=== PATIENT | male | born 1990 | race Caucasian/White ===

== ENCOUNTER → 2019-03-09 08:43 | Outpatient (CLI) | payer OTHER, SELFPAY ==
--- NOTE | 2019-03-09 | DI.MRI.S_ITS ---
PROCEDURE: MR HEAD/BRAIN WO/W CON INDICATIONS: DIZZINESS/OTALGIA TECHNIQUE: Noncontrast sagittal T1 spin echo, axial T2 fast spin echo, axial FLAIR, axial gradient echo, axial diffusion and ADC through the brain. Axial/sagittal/coronal 3-D CISS, thin-slice axial T1 spin echo with fat saturation through the skull base. After the administration of contrast, axial and coronal thin-slice T1 spin echo with fat saturation through the skull base, axial T1 spin echo with fat saturation through the brain. COMPARISON: None. FINDINGS: Image quality: Excellent. Cranial nerves: In this patient with the given history, scrutiny is given to the cranial nerves, including along the internal auditory canals. No masses or abnormal enhancement can be seen. The trigeminal nerves and the Meckel's caves are likewise unremarkable. CSF spaces: Ventricles are normal in size and shape. No extra-axial fluid collections. Basal cisterns are patent. Brain: No intracranial bleeds or mass effects. No abnormal intracranial enhancement. Diffusion weighted images show no acute ischemic insults. Castaneda-white matter interface is intact. Brainstem is normal. Normal intravascular flow voids are present. Skull and face: Calvarial marrow signal is normal. Orbits appear normal. Numerous hypointense stop lesions are seen. Please correlate with patient history and physical examination findings. Sinuses: Sinuses and mastoids appear clear. IMPRESSION: No imaging explanation is found for this patient's presenting symptoms. Dictated by: Perico Jenkins M.D. on 03/09/2019 at 10:15 Approved by: Perico Jenkins M.D. on 03/09/2019 at 10:17
== END ==
PROVIDERS: PCP Preventive Medicine Public Health & General Preventive Medicine; Visit Provider Internal Medicine Rheumatology
DX: R42 Dizziness and giddiness (principal); H92.09 Otalgia, unspecified ear
CPT/HCPCS: 70553

== ENCOUNTER → 2019-05-08 06:27 | Outpatient (CLI) | payer OTHER, SELFPAY ==
--- NOTE | 2019-05-08 | DI.ECHO.S_ITS ---
[facility]---------+ [facility] +---------+ : : [address] : : : : [id number] : : : : Phone: [phone]+ Echocardiogram Report + + :Name: GORDO POSEY Study Date: 05/08/2019 Height: 66 in : :[facility] Weight: 175 lb : : Gender: Male BSA: 1.9 m2 : :: 1990 Age: 28 yrs BP: 112/70 mmHg: :Reason For Study: QTC : : Performed By: Jena King : :Referring: JEAN-CLAUDE SÁNCHEZ : + + Interpretation Summary The left ventricle is normal in size, wall thickness, and systolic function without any focal wall motion abnormalities with the ejection fraction estimated to be 55-60%. Diastolic parameters suggest probable normal left ventricular diastolic function and normal filling pressures. The right ventricle grossly appears normal in size with probable normal systolic function. The right ventricular systolic pressure is estimated to be at least 20 mmHg based on an estimated right atrial pressure of 3 mm Hg. Both atria are normal in size. There is no significant valvular heart disease. The patient was in sinus bradycardia with heart rates between 47-53 bpm during the exam. Procedure: A two-dimensional transthoracic echocardiogram with color flow and Doppler was performed. The study quality was technically good. There is no prior echocardiogram noted for this patient. The patient was in sinus bradycardia with heart rates between 47-53 bpm during the exam. Left Ventricle: The left ventricle is normal in size, wall thickness, and systolic function without any focal wall motion abnormalities. The ejection fraction is estimated to be 55-60%. Diastolic parameters suggest probable normal left ventricular diastolic function and normal filling pressures. Right Ventricle: The right ventricle grossly appears normal in size with probable normal systolic function. Atria: Both atria are normal in size. The interatrial septum is intact with no evidence for an atrial septal defect. Mitral Valve: There is mild mitral annular calcification. The mitral valve leaflets appear borderline thickened, but open well. There is trace mitral regurgitation. Aortic Valve: The aortic valve is trileaflet. The aortic valve opens well. No aortic regurgitation is present. Tricuspid Valve: The tricuspid valve is normal in structure and function. There is a trace or physiologic amount of tricuspid regurgitation. The right ventricular systolic pressure is estimated to be at least 20 mmHg based on an estimated right atrial pressure of 3 mm Hg. Pulmonic Valve: The pulmonic valve is normal in structure and function. There is no pulmonic valvular regurgitation. There is no significant valvular heart disease. Great Vessels: The aortic root is normal size. The dimensions of the ascending aorta are normal. The aortic arch is normal in size. The IVC is of normal diameter and collapses greater than 50% with a sniff. This suggests a low right atrial pressure of 3 mm Hg. Pericardium/ Pleura There is no pericardial effusion. There is no pleural effusion. MMode/2D Measurements & Calculations LVIDd: 5.4 cm Ao root diam: 3.1 cm LVIDs: 3.7 cm Aortic Jxn: 2.3 cm FS: 30.3 % asc Aorta Diam: 3.0 cm EPSS: 0.89 cm Ao Arch Diam (Prox Trans): 2.6 cm IVSd: 1.0 cm LVPWd: 0.88 cm LV gamez. diameter/BSA (cm/m^2): 2.8 LV sys. diameter/BSA (cm/m^2): 2.0 LA dimension: 3.6 cm RA long axis: 4.4 cm LA A2 area: 18.1 cm2 RA area: 14.4 cm2 LA A4 area: 16.5 cm2 RA vol: 40.7 ml LA length (vol): 4.7 cm RA : 21.5 ml/m2 LA vol: 53.8 ml IVC diam: 1.8 cm LA vol index: 28.4 ml/m2 RVDd major: 5.6 cm RVD1 (basal): 3.6 cm RVD2 (mid): 3.0 cm Doppler Measurements & Calculations Ao V2 max: 130.2 cm/sec MV E max nixon: 97.8 cm/sec Ao V2 mean: 85.4 cm/sec MV A max nixon: 52.0 cm/sec Ao max P.8 mmHg MV E/A: 1.9 Ao mean P.4 mmHg Med Peak E' Nixon: 10.2 cm/sec Ao V2 VTI: 29.8 cm E/E' med: 9.6 Lat Peak E' Nixon: 13.7 cm/sec E/E' lat: 7.1 E/e' average: 8.4 MV dec time: 0.17 sec MV P1/2t: 52.7 msec TR max nixon: 204.6 cm/sec MV P1/2t max nixon: 97.4 cm/sec TR max P.7 mmHg MVA(P1/2t): 4.2 cm2 PA V2 max: 99.7 cm/sec PA V2 mean: 59.9 cm/sec PA mean P.8 mmHg PA Accel Time: 0.16 sec Reading Physician:DIANE
== END ==
PROVIDERS: PCP Preventive Medicine Public Health & General Preventive Medicine; Visit Provider Physician Assistant
DX: I45.81 Long QT syndrome (principal); R00.2 Palpitations; R00.1 Bradycardia, unspecified
CPT/HCPCS: 93306

== ENCOUNTER 2019-09-29 20:10 | Emergency (ER) | payer OTHER, SELFPAY ==
[2019-09-29 20:16] VITALS: BP 137/83; PULSE 68; RESP 14; O2SAT 100
--- NOTE | 2019-09-29 20:18 | DI.RAD.S_ITS ---
PROCEDURE: XR CHEST 1V INDICATIONS: chest pain TECHNIQUE: One view of the chest was acquired. COMPARISON: None. FINDINGS: Surgical changes and devices: None. Lungs and pleura: Lungs are clear. No pleural effusions or pneumothorax. Mediastinum: Mediastinal contours appear normal. Heart size is normal. Bones and chest wall: No suspicious bony lesions. Overlying soft tissues appear unremarkable. IMPRESSION: Normal for age, source of current chest pain symptoms is not seen. Dictated by: Imer Hartmann M.D. on 09/29/2019 at 20:50 Approved by: Imer Hartmann M.D. on 09/29/2019 at 20:50
[2019-09-29 20:48] LABS: Add Manual Diff / Slide Review NO; Basophils Absolute Auto 100 /uL (0-100); Eosinophils Absolute Auto 200 /uL (0-450); Eosinophils Percent Auto 2.2 % (2-4); Hematocrit 42.4 % (41-53); Lymphocytes Absolute Auto 1900 /uL (1100-4500); Lymphocytes Percent Auto 27.2 % (25-40); Mean Corpuscular HGB Conc 35.3 % (30-36); Mean Corpuscular Volume 87.7 fL (80-100); Monocytes Absolute Auto 600 /uL (0-900); Monocytes Percent Auto 9.1 % (3-14); Neutrophils Absolute Auto 4200 /uL (1500-7000); Neutrophils Percent Auto 60.5 % (50-75); Platelet Count 230 X10^3/uL (150-400); Red Blood Cell Count 4.84 X10^6/uL (4.5-5.9)
--- NOTE | 2019-09-29 20:53 | ED.CHESTPAIN ---
HPI - Chest Pain General Chief Complaint: Chest Pain Stated Complaint: back and chest pain Time Seen by Provider: 09/29/19 20:53 Source: patient Mode of arrival: Ambulatory Limitations: no limitations History of Present Illness HPI narrative: This is a 29-year-old male comes in with complaint of left shoulder blade pain that is worse when he is using his arm and radiates to the left pectoral area. Patient states that Saturday he felt a knot in that area it has slowly been worsening. He has increased pain with deep inspiration. He denies any recent physical activity that he thinks may have contributed to his symptoms. He has not had any skin changes no rash. He states if he is not using it the pain decreases to a 4/5 but that it is always present and has been constant since Saturday. I had his increased since then so he came in for about. He denies shortness of breath, he denies fevers, no nausea or vomiting. Had 1 episode of diarrhea today, no urinary changes. No swelling in his arms or lower extremities. He did note some left tingling in his fingers denies any neck pain. He has not had similar symptoms in the past. Took a single dose of Motrin this morning with minimal improvement. States he has history of PTSD and migraines. States that he was told he had some irregular beats but that they ?went away?. No prior surgical history. No tobacco, occasional alcohol with no illicit. Family history includes dad has hypertension has a paternal grandmother with stroke and paternal grandfather with cancer. No PEs, lung disease otherwise he is aware of her other cardiac history. Related Data Home Medications Medication Instructions Recorded Confirmed cetirizine 10 mg tablet 10 mg PO DAILY 06/23/19 06/23/19 clonidine HCl 0.3 mg tablet 0.3 mg PO BEDTIME 06/23/19 06/23/19 dextroamphetamine-amphetamine 20 20 mg PO BID 06/23/19 06/23/19 mg tablet sertraline 100 mg tablet 200 mg PO DAILY tab 06/23/19 06/23/19 triamterene-hydrochlorothiazid PO DAILY 06/23/19 06/23/19 Previous Rx's Medication Instructions Recorded rizatriptan 10 mg tablet See Rx Instructions PO .COMPLEX 06/23/19 #10 tab verapamil 40 mg tablet 40 mg PO TID #90 tab 06/23/19 verapamil 180 mg 24 hr 180 mg PO DAILY #60 cap 09/01/19 capsule,extended release zolmitriptan 5 mg tablet See Rx Instructions PO .COMPLEX 09/01/19 #10 tab Allergies Allergy/AdvReac Type Severity Reaction Status Date / Time cefprozil [From Cefzil] Allergy rash Verified 09/01/19 14:19 Review of Systems Review of Systems ROS Unobtainable: All systems reviewed & are unremarkable except as noted in HPI and below Patient History Surgical History History of wisdom tooth extraction (Acute) Family History (Updated 09/29/19 @ 21:16 by Neena Mejia DO) Grandfather Cancer Grandfather Cancer Diabetes mellitus Hypertension Grandmother Cancer COPD (chronic obstructive pulmonary disease) Grandmother Dementia Joint problem Father Hypertension Social History (Updated 09/29/19 @ 21:16 by Neena Mejia DO) marital status: Smoking Status: Former smoker alcohol intake: current substance use type: does not use Smoking Status: Former smoker Exam Narrative Exam Narrative: GENERAL: Alert and oriented x three, well-nourished, well-appearing male in mild distress. Patient is sitting in bed reading a book when I arrive to the room. HEENT: Head normocephalic, atraumatic, EOMI, pupils reactive, face symmetric, moist mucous membranes NECK: Supple, full range of motion CARDIOVASCULAR: Regular rate and rhythm without murmurs, rubs or gallops. RESPIRATORY: Breath sounds equal bilaterally, no wheezes rales or rhonchi. ABDOMEN: Soft, nontender. Normoactive bowel sounds all 4 quadrants. No guarding or rebound, rigidity, no mass : No CVA tenderness BACK: No cervical, thoracic or lumbar vertebral point tenderness. Patient does have point tenderness with palpable knot on his left thoracic region medial to his scapula and patient complains of pain with palpation of this area. Patient does not have any ecchymosis or skin changes. He has full range of motion. Patient has normal range of motion. No sensation changes. Patient's gait is normal. EXTREMITIES: Normal range of motion, no clubbing or edema. 2+ pulses bilateral lower extremities. Neurovascularly intact NEUROLOGICAL: Cranial nerves II through XII grossly intact. Moving all extremities. SKIN: Warm, dry, no petechiae, no rashes or lesions. Initial Vital Signs Initial Vital Signs: Vital Signs Pulse Rate 68 09/29/19 20:16 Respiratory Rate 14 09/29/19 20:16 Blood Pressure 137/83 09/29/19 20:16 Pulse Oximetry 100 09/29/19 20:16 Scores HEART Score Heart Score history: Slightly Suspicious Heart Score EKG: Normal Heart Score Age: < 45 years old Heart Score risk factors: No known risk factors Heart Score troponin: < or = to normal limit Heart Score Total: 0 PERC Score Age greater than or equal to 50 years: No Heart rate greater than or equal to 100 bpm: No Room Air O2 Sat less than 95%: No Unilateral leg swelling: No Recent trauma or surgery: No Hemoptysis: No Prior PE or DVT: No Hormone Use: No Total PERC Score: 0 Course Orders Ordered: ED Orders 09/29/19 20:18 Chest [XR chest 1V] Stat EKG-12 Lead Stat 09/29/19 20:30 Complete Blood Count AUTO DIFF Stat Comprehensive Metabolic Panel Stat D Dimer Stat Lipase Stat Troponin I Stat 09/29/19 21:41 CT angio chest PE protocol Stat Discontinued Medications Sodium Chloride (Normal Saline 0.9%) 1,000 mls @ 1,000 mls/hr IV BOLUS ONE Stop: 09/29/19 22:41 Last Infusion: 09/29/19 22:49 Dose: 0 mls/hr Documented by: Admin: 09/29/19 22:02 Dose: 1,000 mls/hr Documented by: SALUD Vital Signs Vital signs: Vital Signs - 8 hr 09/29/19 20:16 09/29/19 22:02 09/29/19 22:30 Pulse Rate 70 70 Pulse Rate [Left] 68 Respiratory Rate 14 12 16 Blood Pressure [Left Arm] 137/83 138/86 128/75 Pulse Oximetry 100 98 96 MDM - Chest Pain Lab Data Attestation: I reviewed the patient's lab results. Result diagrams: 09/29/19 20:30 09/29/19 20:30 Labs: Lab Results 09/29/19 09/29/19 09/29/19 Range/Units 20:30 20:30 20:30 WBC 7.0 (4.5-11.0) X10^3/uL RBC 4.84 (4.5-5.9) X10^6/uL Hgb 15.0 (13.5-17.5) g/dL Hct 42.4 (41-53) % MCV 87.7 (80-100) fL MCH 31.0 (26-34) PG MCHC 35.3 (30-36) % RDW 13.0 (11.6-14.8) % Plt Count 230 (150-400) X10^3/uL Neut % (Auto) 60.5 (50-75) % Lymph % (Auto) 27.2 (25-40) % [place] % (Auto) 9.1 (3-14) % Eos % (Auto) 2.2 (2-4) % Baso % (Auto) 1.0 (0-2) % Neut # (Auto) 4200 (5364-4152) /uL Lymph # (Auto) 1900 (5518-2948) /uL [place] # (Auto) 600 (0-900) /uL Eos # (Auto) 200 (0-450) /uL Baso # (Auto) 100 (0-100) /uL D-Dimer (<230) ng/mL Sodium 140 (137-145) mmol/L Potassium 3.7 (3.4-5.1) mmol/L Chloride 101 (98-107) mmol/L Carbon Dioxide 31 (22-32) mmol/L BUN 24 H (9-20) mg/dL Creatinine 1.00 (0.66-1.25) mg/dL Estimated GFR > 60.0 (>60) mL/min BUN/Creatinine Ratio 24.0 H (6-22) Glucose 105 H (70-100) mg/dL Calcium 9.6 (8.4-10.2) mg/dL Total Bilirubin 0.3 (0.2-1.3) mg/dL AST 52 (17-59) IU/L ALT 76 H (<50) IU/L Alkaline Phosphatase 81 (38-126) U/L Troponin I < 0.012 (0.01-0.034) ng/mL Total Protein 7.0 (6.3-8.2) g/dL Albumin 4.2 (3.5-5.0) g/dL Globulin 2.8 (1.7-4.1) g/dL Albumin/Globulin Ratio 1.5 (1.0-2.8) Lipase 206 (23-300) U/L 09/29/19 Range/Units 20:30 WBC (4.5-11.0) X10^3/uL RBC (4.5-5.9) X10^6/uL Hgb (13.5-17.5) g/dL Hct (41-53) % MCV (80-100) fL MCH (26-34) PG MCHC (30-36) % RDW (11.6-14.8) % Plt Count (150-400) X10^3/uL Neut % (Auto) (50-75) % Lymph % (Auto) (25-40) % [place] % (Auto) (3-14) % Eos % (Auto) (2-4) % Baso % (Auto) (0-2) % Neut # (Auto) (4578-8793) /uL Lymph # (Auto) (3401-8527) /uL [place] # (Auto) (0-900) /uL Eos # (Auto) (0-450) /uL Baso # (Auto) (0-100) /uL D-Dimer 383 H (<230) ng/mL Sodium (137-145) mmol/L Potassium (3.4-5.1) mmol/L Chloride (98-107) mmol/L Carbon Dioxide (22-32) mmol/L BUN (9-20) mg/dL Creatinine (0.66-1.25) mg/dL Estimated GFR (>60) mL/min BUN/Creatinine Ratio (6-22) Glucose (70-100) mg/dL Calcium (8.4-10.2) mg/dL Total Bilirubin (0.2-1.3) mg/dL AST (17-59) IU/L ALT (<50) IU/L Alkaline Phosphatase (38-126) U/L Troponin I (0.01-0.034) ng/mL Total Protein (6.3-8.2) g/dL Albumin (3.5-5.0) g/dL Globulin (1.7-4.1) g/dL Albumin/Globulin Ratio (1.0-2.8) Lipase (23-300) U/L Imaging Data Chest x-ray: Radiologist's Impression: [address] [address] XRay Report Signed Patient: CHARLEEN POSEYTMR#: [id number] : 1990Acct:[id number] Age/Sex: 29 / MDate of Service: 09/29/19 Loc: ED Accession Number: [id number] Procedure: XR chest 1V Ordering Provider: Neena Mejia D.O. PROCEDURE: XR CHEST 1V INDICATIONS: chest pain TECHNIQUE: One view of the chest was acquired. COMPARISON: None. FINDINGS: Surgical changes and devices: None. Lungs and pleura: Lungs are clear. No pleural effusions or pneumothorax. Mediastinum: Mediastinal contours appear normal. Heart size is normal. Bones and chest wall: No suspicious bony lesions. Overlying soft tissues appear unremarkable. IMPRESSION: Normal for age, source of current chest pain symptoms is not seen. Dictated by: Imer Hartmann M.D. on 09/29/2019 at 20:50 Approved by: Imer Hartmann M.D. on 09/29/2019 at 20:50 CT scan - chest: Radiologist's Impression: No PE, normal heart size. Are feet LV ratio is normal thoracic aorta normal caliber great vessels are patent. Thyroid mediastinum are unremarkable with mild dependent atelectasis in both lungs with no consolidation or effusion and visualized upper abdomen is unremarkable with no acute fractures. ECG Data Attestation: I personally reviewed and interpreted this ECG as follows: Prior ECG tracings: not available for review Interpretation: Sinus rhythm rate of 68 P are 135 QRS of 111 and QTC of 418. No ST elevation was appreciated. No depression appreciated. No prior EKG available. [facility] Narrative Medical decision making narrative: Patient had echo in April of 2019 showed sinus bradycardia with rates between 47 and 53 EF was 55-60% with normal left ventricle and no wall motion abnormalities. Mild mitral annular calcification, mitral valve leaflets appear borderline thickened but open well with trace mitral regurg. Trace or physiologic amount of tricuspid regurg. No major changes on echo. Patient's labs, CBC is negative BUN is 24 with glucose of 105 an ALT of 76 otherwise normal renal function electrolytes and cardiac enzyme. Lipase and LFTs are otherwise normal than above. Patient's dimer was included although not as likely this is elevated in the 300 range and patient and I discussed doing CT to rule out PE and this is negative. Patient has point tenderness on physical exam that is suspicious for more of a musculoskeletal cause. Plan for NSAIDs rest, Tylenol in addition as needed and follow up with primary care. Discharge Plan Departure Patient Disposition: Home Clinical Impression: Acute left-sided thoracic back pain Discharge Date/Time: 09/29/19 22:49 Instructions: DI for Thoracic Back Pain Activity Restrictions/Additional Instructions: Follow up with your physician in the next week for recheck. I would recommend ibuprofen up to 800 mg every 8 hours as needed pain and or Tylenol up to a 1000 mg every 8 hours as needed for pain. You may use moist heat to the affected area several times daily. 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 pellets 24 hr 180 mg PO DAILY Qty: 60 RF: 2 zolmitriptan [Zomig] 5 mg tablet See Rx Instructions PO .COMPLEX Qty: 10 RF: 2 Referrals: Dago Irizarry [Primary Care Provider] -
[2019-09-29 20:55] LABS: Alanine Aminotransferase 76 IU/L (<50); Albumin 4.2 g/dL (3.5-5.0); Albumin Globulin Ratio 1.5 (1.0-2.8); Alkaline Phosphatase 81 U/L (38-126); Aspartate Aminotransferase 52 IU/L (17-59); Bilirubin Total 0.3 mg/dL (0.2-1.3); Blood Urea Nitrogen 24 mg/dL (9-20); Calcium 9.6 mg/dL (8.4-10.2); Carbon Dioxide 31 mmol/L (22-32); Chloride 101 mmol/L (98-107); Estimated Glomerular Filt Rate > 60.0 mL/min (>60); Globulin 2.8 g/dL (1.7-4.1); Glucose 105 mg/dL (70-100); HEMOLYSIS 17 (0-50); Potassium 3.7 mmol/L (3.4-5.1); Sodium 140 mmol/L (137-145)
[2019-09-29 21:07] LABS: Troponin I < 0.012 ng/mL (0.01-0.034)
[2019-09-29 21:10] LABS: Lipase 206 U/L (23-300)
[2019-09-29 21:30] LABS: D Dimer 383 ng/mL (<230)
--- NOTE | 2019-09-29 21:41 | DI.CT.S_ITS ---
PROCEDURE: CT ANGIO CHEST PE PROTOCOL INDICATIONS: left thoracic back/chest pain TECHNIQUE: After the administration of intravenous contrast, 2 mm thick sections acquired from the pulmonary apices to the posterior costophrenic angles. 3-dimensional maximum intensity projection (MIP) coronal and sagittal reformats were then acquired through the thorax. For radiation dose reduction, the following was used: automated exposure control, adjustment of mA and/or kV according to patient size. COMPARISON: [facility], CR, XR CHEST 1V, 09/29/2019, 20:21. FINDINGS: Image quality: Excellent. Pulmonary arteries: Pulmonary arteries are normal in size, and demonstrate no intraluminal filling defects to suggest central pulmonary embolism. Lungs and pleura: Lungs are clear. No pleural effusions or pneumothorax. Central and peripheral airways are patent. Mediastinum: Heart size is normal, without pericardial effusion. No mediastinal or hilar adenopathy. Thoracic aorta is normal in caliber and enhancement. Esophagus is normal in caliber. There is a small hiatal hernia. Bones and chest wall: No suspicious bony lesions. Ribs and thoracic spine appear intact throughout. Thyroid gland is normal. No axillary or supraclavicular adenopathy. Abdomen: Visualized upper abdominal solid organs appear normal in the early arterial phase of enhancement. IMPRESSION: 1. No central pulmonary embolism. 2. Small hiatal hernia. Dictated by: Flor Rosales M.D. on 09/30/2019 at 7:26 Transcribed by: KRISTOPHER on 09/30/2019 at 7:26 Approved by: Flor Rosales M.D. on 09/30/2019 at 8:29
[2019-09-29 22:02] VITALS: BP 138/86; PULSE 70; RESP 12; O2SAT 98
[2019-09-29] MEDS: SODIUM CHLORIDE 0.9% 1,000 ML 1000 ML IV (22:02)
[2019-09-29 22:30] VITALS: BP 128/75; PULSE 70; RESP 16; O2SAT 96
== END 2019-09-29 22:49 | disposition home or self-care (01) ==
PROVIDERS: Emergency Provider Emergency Medicine; PCP Preventive Medicine Public Health & General Preventive Medicine
DX: M54.6 Pain in thoracic spine (principal); R07.9 Chest pain, unspecified
CPT/HCPCS: 36415; 71045; 71275; 80053; 83690; 84484; 85025; 85379; 93005; 96360; 99284; 99285; Q9967

== ENCOUNTER 2020-05-08 12:10 | Emergency (ER) | payer SELFPAY ==
[2020-05-08 12:32] VITALS: BP 135/74; PULSE 74; RESP 18; O2SAT 98; BMI 27.9
--- NOTE | 2020-05-08 12:36 | DI.RAD.S_ITS ---
PROCEDURE: XR SHOULDER LT MIN 2V INDICATIONS: chronic shoulder pain TECHNIQUE: 3 views of the shoulder were acquired. COMPARISON: [facility], CR, XR CHEST 1V, 09/29/2019, 20:21. [facility], CT, CT ANGIO CHEST PE PROTOCOL, 09/29/2019, 21:44. FINDINGS: Bones: No fractures or dislocations. No suspicious bony lesions. Visualized ribs appear intact. Soft tissues: No suspicious soft tissue calcifications. The visualized lung demonstrates an unremarkable appearance. IMPRESSION: No significant plain film abnormality is seen. If it would be helpful for clinical management decision making, please consider a dedicated, scheduled shoulder MRI for further evaluation (assuming that there is no contraindication). If there is strong clinical concern for a labral abnormality, this should be performed according to the arthrogram protocol. Dictated by: Perico Jenkins M.D. on 05/08/2020 at 11:47 Approved by: Perico Jenkins M.D. on 05/08/2020 at 11:48
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
[2020-05-08 13:26] VITALS: BP 121/84; PULSE 71; RESP 14; TEMP 36.8; O2SAT 99
--- NOTE | 2020-05-08 13:52 | PC.NURSE ---
Sling applied to L arm
[2020-05-08 14:47] VITALS: BP 129/75; PULSE 70; O2SAT 100
[2020-05-08 14:57] VITALS: BP 125/64; PULSE 73; RESP 18; O2SAT 99
--- NOTE | 2020-05-08 19:08 | ED.EXTPRO ---
HPI - Extremity Problem <CALEB Fowler - Last Filed: 05/08/20 19:22> General Chief complaint: Extremity Problem,Nontraumatic Stated complaint: Left Shoulder Pain Time Seen by Provider: 05/08/20 13:28 Source: patient Mode of arrival: Family Vehicle Limitations: no limitations History of Present Illness HPI Narrative: This is a 29-year-old male, smoker, who had previous left shoulder pain presents to ED with chief complain of anterior and lateral left shoulder pain for last 3 days. Patient reports he initially hurt his left shoulder I repeatedly hitting on a window of an airplane. Patient denies any new injuries or trauma to affected shoulder. Patient reports limited range of motion greater than 90 degree for forward flexion and abduction. Patient reports decrease sensation to all his fingers but is able to move fingers distally. Patient rates pain as 5/10 and had taken [id number] Motrin. Right dominant hand. 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 Related Data Home Medications Medication Instructions Recorded Confirmed cetirizine 10 mg tablet 10 mg PO DAILY 06/23/19 06/23/19 clonidine HCl 0.3 mg tablet 0.3 mg PO BEDTIME 06/23/19 06/23/19 dextroamphetamine-amphetamine 20 20 mg PO BID 06/23/19 06/23/19 mg tablet sertraline 100 mg tablet 200 mg PO DAILY tab 06/23/19 06/23/19 triamterene-hydrochlorothiazid PO DAILY 06/23/19 06/23/19 Previous Rx's Medication Instructions Recorded rizatriptan 10 mg tablet See Rx Instructions PO .COMPLEX 06/23/19 #10 tab verapamil 40 mg tablet 40 mg PO TID #90 tab 06/23/19 verapamil 180 mg 24 hr 180 mg PO DAILY #60 cap 09/01/19 capsule,extended release zolmitriptan 5 mg tablet See Rx Instructions PO .COMPLEX 09/01/19 #10 tab Allergies Allergy/AdvReac Type Severity Reaction Status Date / Time cefprozil [From Cefzil] Allergy rash Verified 05/08/20 12:35 Review of Systems <CALEB Fowler - Last Filed: 05/08/20 19:22> Review of Systems Narrative: General: Denies fever, chills, fatigue, malaise, sweats. Respiratory: Denies dyspnea, cough, wheezing, hemoptysis, sputum. Cardiovascular: Denies chest pain, palpitations, orthopnea, edema. Gastrointestinal: Denies nausea, vomiting, abdominal pain, diarrhea, constipation, melena. Musculoskeletal: HPI Skin: Denies rash, skin lesions, or other. Psychiatric: No concerning psychosocial issues. 12-point review of systems is negative except for those stated above. Patient History <CALEB Fowler - Last Filed: 05/08/20 19:22> Medical History (Updated 05/08/20 @ 19:13 by CALEB Fowler) ADHD (Acute) Insomnia (Acute) Migraine headache (Acute) Surgical History History of wisdom tooth extraction (Acute) Family History (Updated 09/29/19 @ 21:16 by Neena Mejia DO) Grandfather Cancer Grandfather Cancer Diabetes mellitus Hypertension Grandmother Cancer COPD (chronic obstructive pulmonary disease) Grandmother Dementia Joint problem Father Hypertension Social History (Updated 09/29/19 @ 21:16 by Neena Mejia DO) marital status: Smoking Status: Current every day smoker alcohol intake: current substance use type: does not use Smoking Status: Current every day smoker tobacco type: cigarettes alcohol intake frequency: 0-2 drinks per day Substance Use Type: marijuana Exam <CALEB Fowler - Last Filed: 05/08/20 19:22> Narrative Exam Narrative: General appearance: well developed, well nourished, in no acute distress. Head: normocephalic, atraumatic, no scalp lesions, non-tender. ENT: Hearing grossly intact. Airway patent. Neck/Thyroid: neck supple, full range of motion, no visible masses or meningeal signs. No JVD, non-tender without lymphadenopathy. Skin: no suspicious rashes, lesions over visible areas. Warm and dry and appropriate color for ethnicity. Heart: no clubbing, no cyanosis, no edema. Lungs: Breathing even and unlabored. No stridor. No accessory muscles used. Able to speak in full sentences. Chest: normal shape and expansion. Abdomen: non-obese, non-distended. Neurologic: alert and oriented. Cognitive exam, ACCOUNTS PAYABLE CLERK and PNS grossly intact on informal exam. Psych: good eye contact, normal affect. Initial Vital Signs Initial Vital Signs: Vital Signs Pulse Rate 74 05/08/20 12:32 Respiratory Rate 18 05/08/20 12:32 Blood Pressure 135/74 05/08/20 12:32 Pulse Oximetry 98 05/08/20 12:32 Extrem Right upper extremity: normal to inspection, normal capillary refill, shoulder/upper arm Details: normal to inspection, tenderness Location: of the A-C joint, over the coracoid process and other (Lateral proximal humerus) and abnormal ROM Details: pain with active ROM (Greater than 90?) Details: in ABduction, in extension and in flexion and pain with passive ROM; no swelling, no ecchymosis, no deformity and no unusual warmth and hand Details: normal capillary refill, neuromotor exam normal, vascular exam Details: radial pulse present and normal ROM of fingers <Neda Lyman DO - Last Filed: 05/09/20 08:08> Initial Vital Signs Initial Vital Signs: Vital Signs Pulse Rate 74 05/08/20 12:32 Respiratory Rate 18 05/08/20 12:32 Blood Pressure 135/74 05/08/20 12:32 Pulse Oximetry 98 05/08/20 12:32 Procedures <CALEB Fowler - Last Filed: 05/08/20 19:22> Orthopedic Splinting/Casting Injury #1: Side: left Upper Extremity Injury Location: shoulder Upper Extremity Immobilizer: sling/shoulder immobilizer Post splinting neuro exam: intact Post splinting vascular exam: intact Placed by: Nursing Scores <CALEB Fowler - Last Filed: 05/08/20 19:22> GCS [place] coma scale eye opening: Spontaneous Sanchez coma scale verbal response: Orientated [place] coma scale motor response: Obey commands [place] coma scale total score: 15 Course <CALEB Fowler Last Filed: 05/08/20 19:22> Orders Ordered: ED Orders 05/08/20 12:36 XR shoulder LT min 2V Stat Vital Signs Vital signs: Vital Signs - 8 hr 05/08/20 12:32 05/08/20 13:26 05/08/20 14:47 Temperature 98.2 F Pulse Rate 74 71 70 Respiratory Rate 18 14 Blood Pressure 135/74 121/84 129/75 Pulse Oximetry 98 99 100 05/08/20 14:57 Temperature Pulse Rate 73 Respiratory Rate 18 Blood Pressure 125/64 Pulse Oximetry 99 <Neda Lyman DO - Last Filed: 05/09/20 08:08> Orders Ordered: ED Orders 05/08/20 12:36 XR shoulder LT min 2V Stat Vital Signs Vital signs: Vital Signs - 8 hr 05/08/20 12:32 05/08/20 13:26 05/08/20 14:47 Temperature 98.2 F Pulse Rate 74 71 70 Respiratory Rate 18 14 Blood Pressure 135/74 121/84 129/75 Pulse Oximetry 98 99 100 05/08/20 14:57 Temperature Pulse Rate 73 Respiratory Rate 18 Blood Pressure 125/64 Pulse Oximetry 99 MDM - Extremity (Nontraumatic) <CALEB Fowler - Last Filed: 05/08/20 19:22> Differential Diagnosis Differential diagnosis: Likely other (Shoulder impingement, rotator cuff tears) Medical Records Attestation: I reviewed the patient's medical records. Imaging Data XR-Shoulder LT: Radiologist's Impression: [address] [address] XRay Report Signed Patient: Randell Boone WMR#: [id number] : 1990Acct:[id number] Age/Sex: 29 / MDate of Service: 05/08/20 Loc: ED Accession Number: [id number] Procedure: XR shoulder LT min 2V Ordering Provider: Neda Lyman D.O. PROCEDURE: XR SHOULDER LT MIN 2V INDICATIONS: chronic shoulder pain TECHNIQUE: 3 views of the shoulder were acquired. COMPARISON: [facility], CR, XR CHEST 1V, 09/29/2019, 20:21. [facility], CT, CT ANGIO CHEST PE PROTOCOL, 09/29/2019, 21:44. FINDINGS: Bones: No fractures or dislocations. No suspicious bony lesions. Visualized ribs appear intact. Soft tissues: No suspicious soft tissue calcifications. The visualized lung demonstrates an unremarkable appearance. IMPRESSION: No significant plain film abnormality is seen. If it would be helpful for clinical management decision making, please consider a dedicated, scheduled shoulder MRI for further evaluation (assuming that there is no contraindication). If there is strong clinical concern for a labral abnormality, this should be performed according to the arthrogram protocol. Dictated by: Perico Jenkins M.D. on 05/08/2020 at 11:47 Approved by: Perico Jenkins M.D. on 05/08/2020 at 11:48 MDM Narrative Medical decision making narrative: This is a 29 year male presents to ED with nontraumatic left non dominant arm anterior and lateral shoulder discomfort for last 3 days. Patient reports initially he injured left shoulder 4 years ago after he repeatedly banging on airplane window. Patient reports slightly decrease sensation to fingers. Intact mobility, cap refill, radial pulses. Pain worsens with abduction and forward flexion greater than 90 degree. X-ray test was negative for acute fractures or dislocations. Patient advised to take [id number] Tylenol and or Motrin as needed for discomfort and use sling for acute pain. Patient reminded to exercise and stretch affected shoulder and arm several times a day when he uses a sling to prevent frozen shoulder. Patient advised to follow-up primary care physician hand discussed a referral to physical therapist for evaluation and treatment. Patient verbalized understanding in agreement with treatment plan. Discharge Plan Departure Patient Disposition: Home Clinical Impression: Left shoulder pain Qualifiers: Chronicity: unspecified Qualified Code(s): M25.512 - Pain in left shoulder Discharge Date/Time: 05/08/20 14:59 Instructions: DI for Shoulder Pain Activity Restrictions/Additional Instructions: You have been diagnosed with [left non dominant arm shoulder pain. X-ray test does not show acute findings such as fractures or dislocations]. What to do: *Take your medications as directed. Please take [id number] Tylenol and or Motrin as needed for discomfort. Tylenol 650-1000 mg up to 3 to 4 times a day as needed. Motrin 400-600 mg up to 3 to 4 times a day as needed for pain with food to decrease GI irritation. Use sling as needed for acute pain. Please do stretching exercise on affected arm and shoulder several times a day to prevent frozen shoulder. *Follow up with your primary care provider in 2-3 days, call for an appointment. Let them know you were seen in the ED and that we asked you to be seen in follow up. *Return to ED if you have any new, worsening, or concerning symptoms, such as [worsening pain, increasing tingling/numbness/weakness to affected arm, chest pain, breathing difficulty, unable to tolerate fluids or any acute concerns]. Prescriptions: No Action sertraline [Zoloft] 100 mg tablet 200 mg PO DAILY RF: 0 clonidine HCl 0.3 mg tablet 0.3 mg PO BEDTIME RF: 0 triamterene-hydrochlorothiazid PO DAILY RF: 0 dextroamphetamine-amphetamine [Adderall] 20 mg tablet 20 mg PO BID RF: 0 cetirizine [Zyrtec] 10 mg tablet 10 mg PO DAILY RF: 0 verapamil 40 mg tablet 40 mg PO TID Qty: 90 RF: 3 rizatriptan 10 mg tablet See Rx Instructions PO .COMPLEX Qty: 10 RF: 3 verapamil 180 mg capsule,ext rel. pellets 24 hr 180 mg PO DAILY Qty: 60 RF: 2 zolmitriptan [Zomig] 5 mg tablet See Rx Instructions PO .COMPLEX Qty: 10 RF: 2 <Neda Lyman, DO - Last Filed: 05/09/20 08:08> Cosign ED Attending Elverature Attestation: I was immediately available in the department for consultation. Documentation has been reviewed. I agree with assessment and plan.
== END 2020-05-08 14:59 | disposition home or self-care (01) ==
PROVIDERS: Emergency Provider Nurse Practitioner Family
DX: M25.512 Pain in left shoulder (principal)
CPT/HCPCS: 73030; 99283